=== PATIENT | female | born 1940 | race Caucasian/White ===

== ENCOUNTER 2018-06-22 21:30 | Inpatient (IN) | payer OTHER, MEDICARE ==
[~2018-06-22] VITALS: Ht 157.5 cm; Wt 53.6 kg
[2018-06-22 21:58] VITALS: BP 147/81
[2018-06-22 23:12] VITALS: BP 144/78
[2018-06-23] MEDS ORDERED: AMLO10TA6 PO (04:46)
[2018-06-23] MEDS ORDERED: CEVI30CA PO (04:46)
[2018-06-23] MEDS ORDERED: LINA5TAB4 PO (04:46)
[2018-06-23] MEDS ORDERED: METF500T9 PO (04:46)
[2018-06-23] MEDS ORDERED: LOSA100T7 PO (04:46)
[2018-06-23] MEDS ORDERED: CALC-30 PO (04:46)
[2018-06-23] MEDS ORDERED: PANT40TA5 PO (04:46)
[2018-06-23] MEDS ORDERED: GEMF600T4 PO (04:46)
[2018-06-23] MEDS ORDERED: HYDR200T5 PO (04:46)
[2018-06-23] MEDS ORDERED: ALBU18HF INH (04:46)
[2018-06-23] MEDS ORDERED: BECL10.62 INH (04:46)
[2018-06-23] MEDS ORDERED: OXYB10TA PO (04:46)
[2018-06-23] MEDS ORDERED: ATOR20TA58 PO (04:46)
[2018-06-23] MEDS ORDERED: METO50TA6 PO (04:46)
[2018-06-23] MEDS ORDERED: SILD20TA2 PO (04:46)
[2018-06-23] MEDS ORDERED: RANI150T2 PO (04:47)
[2018-06-23 05:39] VITALS: BP 147/65
[2018-06-23 06:00] LABS: BASO # 0.2 x10^3/uL (0.0-0.2); BASO % 3 % (0-3); EOS # 0.3 x10^3/uL (0.0-0.7); EOS % 5 % (0-3); HEMATOCRIT 34.8 % (36.0-47.0); HEMOGLOBIN 11.3 g/dL (12.0-15.5); LYMPH # 1.1 x10^3/uL (1.0-4.8); LYMPH % 19 % (24-48); MEAN CORPUSCULAR HEMOGLOBIN 30 pg (25-35); MEAN CORPUSCULAR HGB CONC 33 g/dL (31-37); MEAN CORPUSCULAR VOLUME 94 fL (79-100); MONO # 0.7 x10^3/uL (0.0-1.1); MONO % 11 % (0-9); NEUT # 3.6 x10^3uL (1.8-7.7); NEUT % 62 % (31-73); PLATELET COUNT 276 x10^3/uL (140-400); RED BLOOD COUNT 3.71 x10^6/uL (3.50-5.40); RED CELL DISTRIBUTION WIDTH 14.4 % (11.5-14.5); WHITE BLOOD COUNT 5.8 x10^3/uL (4.0-11.0)
[2018-06-23 06:24] LABS: ALBUMIN 2.1 g/dL (3.4-5.0); ALBUMIN/GLOBULIN RATIO 0.6 (1.0-1.7); CALCIUM 7.7 mg/dL (8.5-10.1); CREATININE 0.7 mg/dL (0.6-1.0); GFR 81.4; POTASSIUM 4.2 mmol/L (3.5-5.1); TOTAL BILIRUBIN 0.2 mg/dL (0.2-1.0); TOTAL PROTEIN 5.6 g/dL (6.4-8.2)
[2018-06-23] MEDS ORDERED: MAGNESIUM OXIDE 400 MG TABLET PO SCH (09:00)
[2018-06-23] MEDS ORDERED: DICL100G18 TP (09:28)
[2018-06-23] MEDS ORDERED: CHOL10003 PO (09:28)
[2018-06-23] MEDS ORDERED: MULT-658 PO (09:28)
[2018-06-23] MEDS ORDERED: MAGN71.5 PO (09:28)
[2018-06-23] MEDS ORDERED: HYDR12.58 PO (09:28)
[2018-06-23] MEDS ORDERED: POTA20TA82 PO (09:28)
[2018-06-23] MEDS ORDERED: CRAN200C2 PO (09:28)
[2018-06-23] MEDS ORDERED: LACT1TAB24 PO (09:28)
[2018-06-23 11:07] VITALS: BP 129/70
[2018-06-23] MEDS ORDERED: ALBUTEROL SULFATE 8GM INHALER. INH PRN (12:30)
[2018-06-23] MEDS ORDERED: MAGNESIUM SULFATE 2GM 50 ML IV ONE (13:00)
--- NOTE | 2018-06-23 13:04 | HP ---
ADMIT DATE: 06/23/2018 HISTORY OF PRESENT ILLNESS: The patient is a 78-year-old female patient, who apparently was sent by her primary care physician for abnormal labs and unintentional weight loss. She apparently lost about 30 pounds in weight. She was found to be hyponatremic, hypokalemic, and has had diarrhea and poor intake, ongoing for almost 2 months now. Her stated that she takes few bites of food, being gags. Her primary care physician was concerned about failure to thrive. She denied any focal pain. She apparently was evaluated in the Emergency Room and was found to have urinary tract infection, treated with IV antibiotic. She was also found to have hypomagnesemia, treated with magnesium sulfate and was transferred to our facility as she did not have a bed available for her. When I saw her this morning again her main complaint was diarrhea that has been going on for almost a month according to her and also dysuria and frequency. She has also dysphagia to solids and weight loss of 30 pounds that was unintentional. PAST MEDICAL HISTORY: Significant for bronchial asthma. She is known to have hypertension, hyperlipidemia, gastroesophageal reflux disease, type 2 diabetes, osteoarthritis, pulmonary hypertension, Sjogren's syndrome, squamous cell cancer of the skin, [id number] urinary tract infection, basal cell carcinoma as well as bronchial asthma. PAST SURGICAL HISTORY: Significant for cystoscopy with bladder biopsy, had hysterectomy, salivary gland surgery and colonoscopy. She also said that she has bilateral cataract extraction. FAMILY HISTORY: Unremarkable. She has 3 sisters and 1 brother still all life. Her father at age of 64 because of myocardial infarction. Mother at the age of 86 because of lung cancer as she was a heavy smoker. SOCIAL HISTORY: She is , has 3 sons and 2 daughters. She never smoked, does not drink alcohol and apparently was qepc-vh-[id number] mom. REVIEW OF SYSTEMS: The patient denied any blurring of vision. She did have bilateral cataract extraction, but denied any glaucoma or macular degeneration. Denied any earache, tinnitus or sensorineural deafness. Denied any nosebleeds, stuffy nose or postnasal drip. Denied any sore throat. Did complain of dysphagia to solid. Denied any nausea, vomiting, diarrhea or constipation. Denied any hematemesis, melena or hematochezia. She did complain of dysuria and frequency, but denied any hematuria. Denied any chest pain, shortness of breath, cough or phlegm. Denied any dizziness, lightheadedness, or vertigo. Denied any chills, rigors, or fever. ALLERGIES: She is allergic to LALO INHIBITORS, SULFA DRUGS, CIPROFLOXACIN, GLIMEPIRIDE, LEVOFLOXACIN, NITROFURANTOIN. MEDICATIONS: She is currently on following medications: She is currently on metformin 500 mg 2 tablets twice a day, Lipitor for atorvastatin 20 mg at bedtime, Norvasc/amlodipine 10 mg once a day, gemfibrozil 600 mg twice a day, Lactinex for lactobacillus acidophilus chewable tablet 1 tablet 3 times a day. She is on Voltaren/diclofenac sodium 1% topical gel apply 4 grams to affected areas of the lower extremities once a day. She is on Lopressor 50 mg takes half a tablet in the morning, Tradjenta for linagliptin 5 mg once a day, QVAR/beclomethasone dipropionate 80 mcg one activation orally one inhalation once a day. She is on hydrochlorothiazide 12.5 mg every other day, losartan potassium 100 mg once a day, Zantac 150 mg 1 tablet at bedtime, estradiol 0.1 mg per 1 gram vaginal cream 2 nights per week, Ventolin for albuterol 2 puffs every 4 hours as needed, potassium chloride 20 mEq once a day, sildenafil citrate 20 mg 3 times a day. She is on oxybutynin chloride once a day, cranberry capsules one capsule once a day, vitamin D 1000 international units once a day, hydroxychloroquine sulfate 1 tablet twice a day, Centrum Silver 1 tablet p.o. once a day, and Caltrate 600 mg plus vitamin D plus 600 mg of vitamin D once a day and Slow-Mag 2 tablets once a day. PHYSICAL EXAMINATION: GENERAL: When examining her, she looked pale, somewhat cachectic, but no jaundice, cyanosis. No lymphadenopathy, no thyromegaly. No jugular venous distension. No lower limb edema. VITAL SIGNS: Her heart rate was 103, blood pressure was 147/81, temperature was 98.1, respiratory rate 20, and oxygen saturation was 95% on room air. HEAD, EYES, EARS, NOSE AND THROAT: Showed normocephalic, atraumatic. NECK: Supple. HEART: Showed normal first and second heart sounds with no gallop, rub or murmur. CHEST: Clear to auscultation. No crepitation or rhonchi. ABDOMEN: Distended, soft, nontender. No guarding or rigidity. No organomegaly. All hernial orifice intact. Bowel sounds normal. NEUROLOGIC: She was awake, alert, responding appropriately. All her cranial nerves intact. EXTREMITIES: She moves extremities without difficulty. She apparently ambulates without assistance or assistive devices. LABORATORY DATA: At [facility] showed a white cell count of 6500, hemoglobin 11.7, hematocrit 37, MCV was 94 and platelet count of 322,000 with normal manual differential. Her serum sodium was 139, potassium 4.7, chloride 112, bicarbonate 17, anion gap of 10, calcium was 8.6, glucose 169. Total protein was 6.6, albumin 3.3. AST, ALT, alkaline phosphatase were normal. Total bilirubin was 0.2. Her BUN was 20, creatinine 0.9, estimated GFR was 73 mL per minute. Her urinalysis showed the urine was yellow. Urine was negative for glucose, bilirubin, ketones with a specific gravity is 1.025, pH was 6. There was small amount of protein. The urine was negative for urobilinogen. It was positive for nitrites and there was large amount of leukocyte esterase. Her serum lipase was normal at 109. She has severe hypomagnesemia with serum magnesium was 1.2, ionized calcium was 4.6, phosphorus 3.5 and urine microscopy showed the patient has 6-10 rbc's, more than 40 wbc's. There are large amount of bacteria. Her EKG showed that the heart rate was 78 with a QT interval of 364, corrected QT interval of 431. She did had CT scan of the abdomen and pelvis, which was done without contrast, which basically showed that the visualized lung bases are clear. There are multiple calcified gallstones, calcified granulomas are seen in the spleen. The kidneys appear small in size suggesting atrophy. There are small hypodense lesions in each kidney measuring up to 11 mm in the right side and 11 mm on the left. These are nonspecific, but suggestive of hyperdense cyst. The liver, gallbladder, spleen, pancreas, adrenal glands and kidneys are otherwise normal. Urinary bladder is normal in appearance. Diverticulosis coli is noted. There is prominent mural thickening involving a large segment of the colon including the ascending colon and the proximal half of the transverse colon. Findings are consistent with nonspecific colitis. There is no bowel obstruction. There is no evidence for acute appendicitis, mild atherosclerotic calcification are seen. No lymphadenopathy or ascites is seen. Degenerative changes are seen in the spine. The patient has nonspecific colitis involving the ascending colon, proximal transverse colon. Differential considerations include, but are not limited to infectious inflammatory ischemic or neoplastic etiologies. The renal ultrasound showed that the patient has small bilateral renal cyst. No evidence of solid renal mass or hydronephrosis. Both kidneys are measuring 9-10 cm in size. Parenchymal echotexture is normal bilaterally. Bladder is unremarkable. Her chest x-ray showed that the cardiac silhouette and pulmonary vasculature are within normal limits. There is no focal consolidation, pleural effusion or pneumothorax. The patient has degenerative changes seen in the spine. ASSESSMENT AND PLAN: The patient was transferred to our facility with urinary tract infection, hypomagnesemia and nonspecific colitis. Apparently, they attempted to send stool for culture and sensitivity as well as C. diff colitis, but having obtained a sample while she has at [facility]. My plan is obviously to continue all her current medication. We will continue with the IV ceftriaxone for her urinary tract infection, awaiting the results of culture and sensitivity. We will replenish her magnesium and send stool for C. diff and also for culture and sensitivity. HEAVENLY QUEZADA MD DR: LESIA/paulie JOB#: [id number] / [id number]
[2018-06-23] MEDS ORDERED: ALBUTEROL SULFATE 2.5 MG/3 ML NEBU. NEB PRN (13:30)
[2018-06-23] MEDS: SILDENAFIL CITRATE 20 MG TABLET. PO SCH ×2 (14:00→20:39)
[2018-06-23] MEDS: CEVIMELINE HCL 30 MG CAPSULE PO SCH ×2 (14:00→20:37)
[2018-06-23] MEDS: DICLOFENAC SODIUM 1% TOPICAL GEL 100GM TUBE. TP SCH ×3 (14:25→20:50)
[2018-06-23] MEDS: MAGNESIUM OXIDE 400 MG TABLET PO SCH ×2 (14:26→20:38)
[2018-06-23] MEDS: LACTOBACILLUS RHAMNOSUS GG 1 CAPSULE. PO SCH ×2 (14:26→20:37)
[2018-06-23 15:04] VITALS: BP 146/78
[2018-06-23] MEDS: GEMFIBROZIL 600 MG TABLET. PO SCH (17:52)
[2018-06-23] MEDS: metFORMIN XR 500 MG TAB.ER.24H PO SCH (17:52)
[2018-06-23] MEDS: cefTRIAXone IV Push 1 GM VIAL. IVP SCH (20:37)
[2018-06-23] MEDS: OXYBUTYNIN CHLORIDE 5 MG TABLET PO SCH (20:38)
[2018-06-23] MEDS: FAMOTIDINE 20 MG TABLET PO SCH (20:38)
[2018-06-23 20:40] VITALS: BP 154/77
[2018-06-23] MEDS: ENOXAPARIN 40 MG/0.4 ML SYRINGE. SQ SCH (20:40)
[2018-06-23] MEDS: BUDESONIDE 0.5 MG/2 ML NEBU NEB SCH (20:49)
[2018-06-23 23:04] VITALS: BP 139/60
[2018-06-24 05:51] VITALS: BP 147/77
[2018-06-24 06:20] LABS: RED BLOOD COUNT 3.67 x10^6/uL (3.50-5.40); RED CELL DISTRIBUTION WIDTH 14.6 % (11.5-14.5)
[2018-06-24 06:28] LABS: ALBUMIN 2.1 g/dL (3.4-5.0); ALBUMIN/GLOBULIN RATIO 0.6 (1.0-1.7); CALCIUM 7.7 mg/dL (8.5-10.1); CREATININE 0.7 mg/dL (0.6-1.0); GFR 81.4; POTASSIUM 4.2 mmol/L (3.5-5.1); TOTAL BILIRUBIN 0.2 mg/dL (0.2-1.0); TOTAL PROTEIN 5.6 g/dL (6.4-8.2)
[2018-06-24] MEDS: LINAGLIPTIN 5 MG TABLET PO SCH (08:57)
[2018-06-24] MEDS: MAGNESIUM OXIDE 400 MG TABLET PO SCH ×3 (08:57→21:14)
[2018-06-24] MEDS: GEMFIBROZIL 600 MG TABLET. PO SCH ×2 (08:57→17:13)
[2018-06-24] MEDS: POTASSIUM CHLORIDE 20 MEQ TABLET.ER. PO SCH (08:57)
[2018-06-24] MEDS: ATORVASTATIN CALCIUM 20 MG TABLET PO SCH (08:57)
[2018-06-24] MEDS: MULTIVITAMIN I-VITE TABLET. PO SCH (08:57)
[2018-06-24] MEDS: LACTOBACILLUS RHAMNOSUS GG 1 CAPSULE. PO SCH ×3 (08:58→21:15)
[2018-06-24] MEDS: CALCIUM CARB/VIT D3 500/200 TABLET PO SCH (08:58)
[2018-06-24] MEDS: hydroCHLOROthiazide 12.5 MG CAPSULE PO SCH (08:58)
[2018-06-24] MEDS: CHOLECALCIFEROL (VITAMIN D3) 1,000 UNIT TABLET PO SCH (08:58)
[2018-06-24] MEDS: amLODIPine BESYLATE 10 MG TABLET PO SCH (08:58)
[2018-06-24] MEDS: HYDROXYCHLOROQUINE 200 MG TABLET PO SCH (08:59)
[2018-06-24] MEDS: SILDENAFIL CITRATE 20 MG TABLET. PO SCH ×3 (08:59→21:14)
[2018-06-24] MEDS: DICLOFENAC SODIUM 1% TOPICAL GEL 100GM TUBE. TP SCH ×4 (09:00→21:13)
[2018-06-24] MEDS ORDERED: BECLOMETHASONE DIPROPIONATE INH SCH (09:00)
[2018-06-24] MEDS: MAGNESIUM CHLORIDE ER 64 MG TABLET.ER PO SCH (09:00)
[2018-06-24] MEDS: CEVIMELINE HCL 30 MG CAPSULE PO SCH ×3 (09:00→21:13)
[2018-06-24] MEDS ORDERED: NON FORMULARY ITEM (Cranberry Extract (Cranberry) 200 MG) PO SCH (09:00)
[2018-06-24] MEDS: metFORMIN XR 500 MG TAB.ER.24H PO SCH ×2 (09:01→17:13)
[2018-06-24] MEDS: METOPROLOL SUCC 24HR ER 25 MG TAB.ER.24H. PO SCH (09:07)
[2018-06-24 10:40] VITALS: BP 129/71
[2018-06-24] MEDS: BUDESONIDE 0.5 MG/2 ML NEBU NEB SCH ×2 (11:05→21:00)
[2018-06-24 14:39] VITALS: BP 123/70
[2018-06-24] MEDS: cefTRIAXone IV Push 1 GM VIAL. IVP SCH (17:14)
--- NOTE | 2018-06-24 17:35 | PN ---
DATE: 06/24/2018 SUBJECTIVE: The patient is a 78-year-old female patient who was transferred from [facility] Emergency Room where she was seen initially with a complaint of diarrhea that has been going on for almost a month now. She was also found to have urinary tract infection, hypomagnesemia and unintentional weight loss. Her imaging studies showed that she has colitis. Her lab work showed that she has marked hypomagnesemia and her CT scan of the abdomen showed that she has diffuse colitis involving the transverse colon and descending and sigmoid colon; however, no stool samples were obtained at [facility] and so far, we have not obtained one here, although she continued to have diarrhea. She said she has 3 loose bowel movements this morning. PHYSICAL EXAMINATION: GENERAL: On examining her, she was resting flat, comfortably in bed, in no apparent distress. Awake, alert, responding appropriately. She was pale, but no jaundice, cyanosis, or thyromegaly. No jugular venous distension. No limb edema. VITAL SIGNS: Her heart rate was 85, blood pressure was 147/77, temperature was 98.5, respiratory rate was 20, and oxygen saturation was 94% on 2 liters of oxygen. The rest of clinical exam is unremarkable. Her intake was 1141 and no output was recorded. LABORATORY DATA: This morning showed serum sodium 139, potassium 4.2, chloride was 108, bicarbonate 22, anion gap of 9, BUN 10, creatinine 0.7, estimated GFR was 81 mL per minute. Her glucose was 170 mg/dL. Calcium was 7.7. Total bilirubin, AST, ALT, alkaline phosphatase were normal. Total protein was 5.6, albumin 2.1. Her white cell count was 8000, hemoglobin 11, hematocrit 34, MCV 93, and platelet count of 266,000. ASSESSMENT AND PLAN: This is a 78-year-old female patient who was admitted with 1. Urinary tract infection for which now Rocephin. Her urine was sent for culture and sensitivity at [facility]. We will contact the lab to find out the identification and sensitivity. 2. Diffuse colitis with differential including infectious versus ischemic colitis. The patient continued to have loose bowel movement. We will attempt to get a stool sample to send it for C. diff toxins as well as for culture and sensitivity. Meanwhile, we will start her on vancomycin once we have the stool sample. She did have a swallowing evaluation done yesterday and the speech therapist said that she was fine with all consistencies, but she recommended upper GI endoscopy. She did have also hypomagnesemia for which she received 2 grams of magnesium sulfate and we will start her on magnesium oxide. I did contact the lab to check her magnesium this morning again. HEAVENLY QUEZADA MD DR: LESIA/paulie JOB#: [id number] / [id number]
[2018-06-24 20:10] VITALS: BP 139/81
[2018-06-24] MEDS: ENOXAPARIN 40 MG/0.4 ML SYRINGE. SQ SCH (21:13)
[2018-06-24] MEDS: ACETAMINOPHEN 325 MG TABLET PO PRN (21:13)
[2018-06-24] MEDS: OXYBUTYNIN CHLORIDE 5 MG TABLET PO SCH (21:14)
[2018-06-24] MEDS: LOSARTAN 50 MG TABLET. PO SCH (21:14)
[2018-06-24] MEDS: FAMOTIDINE 20 MG TABLET PO SCH (21:14)
[2018-06-24 22:54] VITALS: BP 128/72
[2018-06-25 06:25] VITALS: BP 130/75
[2018-06-25 07:18] LABS: CALCIUM 8.1 mg/dL (8.5-10.1); CREATININE 0.8 mg/dL (0.6-1.0); GFR 69.7; POTASSIUM 4.8 mmol/L (3.5-5.1)
[2018-06-25] MEDS: metFORMIN XR 500 MG TAB.ER.24H PO SCH ×2 (08:44→17:14)
[2018-06-25] MEDS: ACETAMINOPHEN 325 MG TABLET PO PRN ×2 (08:44→21:29)
[2018-06-25] MEDS: amLODIPine BESYLATE 10 MG TABLET PO SCH (08:44)
[2018-06-25] MEDS: MULTIVITAMIN I-VITE TABLET. PO SCH (08:44)
[2018-06-25] MEDS: POTASSIUM CHLORIDE 20 MEQ TABLET.ER. PO SCH (08:45)
[2018-06-25] MEDS: MAGNESIUM OXIDE 400 MG TABLET PO SCH ×3 (08:45→21:29)
[2018-06-25] MEDS: GEMFIBROZIL 600 MG TABLET. PO SCH ×2 (08:45→17:14)
[2018-06-25] MEDS: CALCIUM CARB/VIT D3 500/200 TABLET PO SCH (08:45)
[2018-06-25] MEDS: LACTOBACILLUS RHAMNOSUS GG 1 CAPSULE. PO SCH ×3 (08:45→21:29)
[2018-06-25] MEDS: CHOLECALCIFEROL (VITAMIN D3) 1,000 UNIT TABLET PO SCH (08:45)
[2018-06-25] MEDS: LINAGLIPTIN 5 MG TABLET PO SCH (08:45)
[2018-06-25] MEDS: MAGNESIUM CHLORIDE ER 64 MG TABLET.ER PO SCH (08:45)
[2018-06-25] MEDS: METOPROLOL SUCC 24HR ER 25 MG TAB.ER.24H. PO SCH (08:45)
[2018-06-25] MEDS: SILDENAFIL CITRATE 20 MG TABLET. PO SCH ×3 (08:46→21:29)
[2018-06-25] MEDS: CEVIMELINE HCL 30 MG CAPSULE PO SCH ×3 (08:46→21:28)
[2018-06-25] MEDS: ATORVASTATIN CALCIUM 20 MG TABLET PO SCH (08:47)
[2018-06-25] MEDS: DICLOFENAC SODIUM 1% TOPICAL GEL 100GM TUBE. TP SCH ×4 (08:47→21:36)
[2018-06-25] MEDS: HYDROXYCHLOROQUINE 200 MG TABLET PO SCH (08:47)
[2018-06-25] MEDS: BUDESONIDE 0.5 MG/2 ML NEBU NEB SCH ×2 (11:26→20:49)
[2018-06-25 14:30] VITALS: BP 115/70
--- NOTE | 2018-06-25 14:53 | PN ---
DATE: 06/25/2018 SUBJECTIVE: The patient is resting flat, comfortably, in no apparent distress. On questioning her, she continued to complain of pain in her shoulders. She stated that she has 4 episodes of diarrhea, although the [employer]OP [employer]GER said that they are formed stool. Denied any nausea or vomiting. OBJECTIVE: GENERAL: When I examined her, she was pale, somewhat cachectic, but no jaundice, cyanosis, or thyromegaly. No jugular venous distension. No lower limb edema. VITAL SIGNS: Her heart rate was 81, blood pressure 130/75, temperature was 97.9, respiratory rate 20, and oxygen saturation was 93% on room air. HEAD, EYES, EARS, NOSE AND THROAT: Normocephalic, atraumatic. NECK: Supple. HEART: Showed normal first and second heart sounds with no gallop, rub or murmur. CHEST: Clear to auscultation. No crepitation or rhonchi. ABDOMEN: Distended, soft, nontender. No guarding or rigidity. No organomegaly. Her hernial orifice intact. Bowel sounds normal. NEUROLOGIC: She was awake, alert, responding appropriately. All cranial nerves intact. She ambulates without assistance or assistive devices. Her intake was 700 and output was 150. LABORATORY DATA: As of this morning, her serum sodium was 137, potassium 4.8, chloride 105, bicarbonate 22, anion gap of 10, BUN 17, creatinine 0.8, estimated GFR was 70 mL per minute. Her glucose 122, calcium was 8.1, glucose was 108 and magnesium was 1.8. ASSESSMENT: 1. Urinary tract infection for which she is now on Rocephin. Her urine was sent for culture and sensitivity at [facility]. I did contact the labs and unfortunately, I could not get any results. 2. Diffuse colitis with differential including infectious versus ischemic. The patient apparently has 4 bowel movements; however, they are formed. 3. Dysphagia, however, the patient had swallowing evaluation done, which showed that the patient is fine with all consistencies and she recommended an upper GI endoscopy. 4. Hypomagnesemia for which she received 2 grams of magnesium sulfate and started magnesium oxide. Her magnesium was 1.8 mg/dL. PLAN: To continue with IV Rocephin. Continue with all her other medications and we will contact the [facility] microbiology lab tomorrow to find out the results of the urine culture and sensitivity. We did send stool for culture and sensitivity; however, we are unable to so far to send any stool for C. diff. HEAVENLY QUEZADA MD DR: LESIA/paulie JOB#: [id number] / [id number]
[2018-06-25] MEDS: cefTRIAXone IV Push 1 GM VIAL. IVP SCH (17:15)
[2018-06-25 18:59] VITALS: BP 117/68
[2018-06-25] MEDS: FAMOTIDINE 20 MG TABLET PO SCH (21:29)
[2018-06-25] MEDS: OXYBUTYNIN CHLORIDE 5 MG TABLET PO SCH (21:29)
[2018-06-25] MEDS: LOSARTAN 50 MG TABLET. PO SCH (21:30)
[2018-06-25] MEDS: ENOXAPARIN 40 MG/0.4 ML SYRINGE. SQ SCH (21:33)
[2018-06-26 01:00] VITALS: BP 131/66
[2018-06-26 06:43] LABS: BASO # 0.1 x10^3/uL (0.0-0.2); BASO % 1 % (0-3); EOS # 0.4 x10^3/uL (0.0-0.7); EOS % 4 % (0-3); HEMATOCRIT 35.7 % (36.0-47.0); HEMOGLOBIN 11.2 g/dL (12.0-15.5); LYMPH # 2.2 x10^3/uL (1.0-4.8); LYMPH % 26 % (24-48); MEAN CORPUSCULAR HEMOGLOBIN 30 pg (25-35); MEAN CORPUSCULAR HGB CONC 32 g/dL (31-37); MEAN CORPUSCULAR VOLUME 94 fL (79-100); MONO # 0.9 x10^3/uL (0.0-1.1); MONO % 11 % (0-9); NEUT # 4.7 x10^3uL (1.8-7.7); NEUT % 57 % (31-73); PLATELET COUNT 296 x10^3/uL (140-400); RED CELL DISTRIBUTION WIDTH 15.1 % (11.5-14.5); WHITE BLOOD COUNT 8.3 x10^3/uL (4.0-11.0)
[2018-06-26 06:57] LABS: ALBUMIN 2.1 g/dL (3.4-5.0); ALBUMIN/GLOBULIN RATIO 0.5 (1.0-1.7); CALCIUM 8.6 mg/dL (8.5-10.1); CREATININE 0.9 mg/dL (0.6-1.0); GFR 60.9; POTASSIUM 5.1 mmol/L (3.5-5.1); TOTAL BILIRUBIN 0.2 mg/dL (0.2-1.0); TOTAL PROTEIN 6.4 g/dL (6.4-8.2)
[2018-06-26] MEDS: CALCIUM CARB/VIT D3 500/200 TABLET PO SCH (08:38)
[2018-06-26] MEDS: LINAGLIPTIN 5 MG TABLET PO SCH (08:39)
[2018-06-26] MEDS: POTASSIUM CHLORIDE 20 MEQ TABLET.ER. PO SCH (08:39)
[2018-06-26] MEDS: amLODIPine BESYLATE 10 MG TABLET PO SCH (08:39)
[2018-06-26] MEDS: MAGNESIUM CHLORIDE ER 64 MG TABLET.ER PO SCH (08:39)
[2018-06-26] MEDS: ATORVASTATIN CALCIUM 20 MG TABLET PO SCH (08:39)
[2018-06-26] MEDS: GEMFIBROZIL 600 MG TABLET. PO SCH ×2 (08:39→18:18)
[2018-06-26] MEDS: metFORMIN XR 500 MG TAB.ER.24H PO SCH ×2 (08:39→18:18)
[2018-06-26] MEDS: CHOLECALCIFEROL (VITAMIN D3) 1,000 UNIT TABLET PO SCH (08:39)
[2018-06-26] MEDS: MAGNESIUM OXIDE 400 MG TABLET PO SCH ×3 (08:40→19:35)
[2018-06-26] MEDS: MULTIVITAMIN I-VITE TABLET. PO SCH (08:40)
[2018-06-26] MEDS: hydroCHLOROthiazide 12.5 MG CAPSULE PO SCH (08:40)
[2018-06-26] MEDS: CEVIMELINE HCL 30 MG CAPSULE PO SCH ×3 (08:40→19:36)
[2018-06-26] MEDS: METOPROLOL SUCC 24HR ER 25 MG TAB.ER.24H. PO SCH (08:40)
[2018-06-26] MEDS: SILDENAFIL CITRATE 20 MG TABLET. PO SCH ×3 (08:41→19:40)
[2018-06-26] MEDS: HYDROXYCHLOROQUINE 200 MG TABLET PO SCH (08:41)
[2018-06-26] MEDS: DICLOFENAC SODIUM 1% TOPICAL GEL 100GM TUBE. TP SCH ×4 (08:42→19:36)
[2018-06-26] MEDS: LACTOBACILLUS RHAMNOSUS GG 1 CAPSULE. PO SCH ×3 (08:47→19:35)
[2018-06-26] MEDS: BUDESONIDE 0.5 MG/2 ML NEBU NEB SCH ×2 (09:27→20:33)
[2018-06-26 11:42] VITALS: BP 117/72
[2018-06-26] MEDS: ACETAMINOPHEN 325 MG TABLET PO PRN (14:02)
--- NOTE | 2018-06-26 15:08 | PN ---
DATE: 06/26/2018 SUBJECTIVE: The patient is resting flat, comfortably in bed, in no apparent distress. She continued to complain of pain in her shoulders, although they are much improved compared to when she came in. She continued to have loose bowel movement. In fact, she has 3 episodes of diarrhea this morning. Denied any nausea or vomiting. Denied any abdominal pain. Stools were sent for culture and sensitivity as well as C. diff toxins, the results of which are still pending at the time of this dictation. PHYSICAL EXAMINATION: GENERAL: When I saw her this afternoon, she was resting slightly propped up in bed, in no apparent distress and pale, but no jaundice, cyanosis, or thyromegaly. No jugular venous distension. No limb edema. VITAL SIGNS: His heart rate was 83, blood pressure 117/72, temperature was 98.3, respiratory rate was 18 and oxygen saturation was 93%. HEAD, EYES, EARS, NOSE AND THROAT: Normocephalic, atraumatic. NECK: Supple. HEART: Showed normal first and second heart sounds with no gallop, rub or murmur. CHEST: Clear to auscultation. No crepitation or rhonchi. ABDOMEN: Slightly distended, soft, nontender. No guarding or rigidity. No organomegaly. Hernial orifice intact. Bowel sounds normal. NEUROLOGIC: She was awake, alert, responding appropriately. Cranial nerves intact. She moves extremities without difficulty. She ambulates without assistance or assistive devices. Her intake over the last 24 hours was 700, output 150. LABORATORY DATA: The lab work this morning showed a serum sodium 138, potassium 5.1, chloride 105, bicarbonate 21, anion gap of 12, BUN 19, creatinine 0.9, estimated GFR was 61 mL per minute. Her glucose was 120, calcium was 8.6. Total bilirubin, AST, ALT, alkaline phosphatase were normal. Total protein 6.4, albumin was 2.1. Her white cell count was 8300, hemoglobin 11, hematocrit 35, MCV 94 and platelet count 296,000 with normal manual differential. ASSESSMENT AND PLAN: 1. Urinary tract infection for which she is now on Rocephin. Her urine was sent for culture and sensitivity at [facility]. I did contact the lab and unfortunately I could not get any results yesterday, I will try again. 2. Diffuse colitis with differential including infectious versus ischemic colitis. The patient's stool was sent for culture and sensitivity and C. diff toxin, the result of which is still pending dysphagia; however, the patient did very well on her video swallowing evaluation, which showed that the patient is fine with all consistencies and the speech therapist recommended an upper GI endoscopy. 3. Hypomagnesemia for which she received 2 grams of magnesium sulfate and she is now on magnesium oxide. Her most recent magnesium was 1.8 mg/dL. PLAN: Continue with IV Rocephin. Continue with all her other medications. I will contact [facility] lab to see if there is any sensitivity available. We have also contacted [facility] to see if there are any results of stool culture and sensitivity and also C. diff toxins. If the cultures are negative, I will transfer her to [facility] to consult the auto parts professional team for upper and lower GI endoscopy and consequent to elucidate the reason for her unexplained weight loss and finding in her colon. HEAVENLY QUEZADA MD DR: LESIA/paulie JOB#: [id number] / [id number]
[2018-06-26 16:05] VITALS: BP 125/72
[2018-06-26] MEDS: cefTRIAXone IV Push 1 GM VIAL. IVP SCH (18:19)
[2018-06-26] MEDS: LOSARTAN 50 MG TABLET. PO SCH (19:35)
[2018-06-26] MEDS: FAMOTIDINE 20 MG TABLET PO SCH (19:35)
[2018-06-26] MEDS: OXYBUTYNIN CHLORIDE 5 MG TABLET PO SCH (19:36)
[2018-06-26] MEDS: ENOXAPARIN 40 MG/0.4 ML SYRINGE. SQ SCH (19:36)
[2018-06-26 19:39] VITALS: BP 119/77
[2018-06-26 22:57] VITALS: BP 111/61
[2018-06-27 05:17] VITALS: BP 134/69
[2018-06-27] MEDS: MAGNESIUM CHLORIDE ER 64 MG TABLET.ER PO SCH (08:28)
[2018-06-27] MEDS: metFORMIN XR 500 MG TAB.ER.24H PO SCH ×2 (08:28→17:10)
[2018-06-27] MEDS: MULTIVITAMIN I-VITE TABLET. PO SCH (08:28)
[2018-06-27] MEDS: SILDENAFIL CITRATE 20 MG TABLET. PO SCH ×3 (08:29→20:45)
[2018-06-27] MEDS: MAGNESIUM OXIDE 400 MG TABLET PO SCH ×3 (08:29→20:45)
[2018-06-27] MEDS: ATORVASTATIN CALCIUM 20 MG TABLET PO SCH (08:29)
[2018-06-27] MEDS: LACTOBACILLUS RHAMNOSUS GG 1 CAPSULE. PO SCH ×3 (08:29→20:45)
[2018-06-27] MEDS: amLODIPine BESYLATE 10 MG TABLET PO SCH (08:29)
[2018-06-27] MEDS: LINAGLIPTIN 5 MG TABLET PO SCH (08:30)
[2018-06-27] MEDS: GEMFIBROZIL 600 MG TABLET. PO SCH ×2 (08:30→17:10)
[2018-06-27] MEDS: POTASSIUM CHLORIDE 20 MEQ TABLET.ER. PO SCH (08:30)
[2018-06-27] MEDS: CALCIUM CARB/VIT D3 500/200 TABLET PO SCH (08:30)
[2018-06-27] MEDS: METOPROLOL SUCC 24HR ER 25 MG TAB.ER.24H. PO SCH (08:31)
[2018-06-27] MEDS: CHOLECALCIFEROL (VITAMIN D3) 1,000 UNIT TABLET PO SCH (08:31)
[2018-06-27] MEDS: CEVIMELINE HCL 30 MG CAPSULE PO SCH ×3 (08:32→20:41)
[2018-06-27] MEDS: HYDROXYCHLOROQUINE 200 MG TABLET PO SCH (08:32)
[2018-06-27] MEDS: DICLOFENAC SODIUM 1% TOPICAL GEL 100GM TUBE. TP SCH ×4 (08:33→21:03)
[2018-06-27] MEDS: BUDESONIDE 0.5 MG/2 ML NEBU NEB SCH ×2 (09:54→20:33)
--- NOTE | 2018-06-27 10:57 | PN ---
DATE: 06/27/2018 SUBJECTIVE: The patient is resting slightly propped up in bed, in no apparent distress. She continued to complain of diarrhea. In fact, she said that she has 3 bowel movements this morning. Stool was sent for C. diff toxins as well as culture and sensitivity. It was supposed to be done at [facility] and so we will call the [facility] again this afternoon to find out if they have any results for the C. diff toxins. OBJECTIVE: GENERAL: When I examined her this morning, she looked pale, somewhat cachectic, but no jaundice or cyanosis. No lymphadenopathy, no thyromegaly. No jugular venous distension. No limb edema. VITAL SIGNS: Her heart rate was 80, blood pressure 134/69, temperature was 98.3, respiratory rate was 20, and oxygen saturation was 96%. HEAD, EYES, EARS, NOSE, AND THROAT: Normocephalic, atraumatic. NECK: Supple. HEART: Showed normal first and second heart sounds with no gallop, rub, or murmur. CHEST: Clear to auscultation. No crepitation or rhonchi. ABDOMEN: Distended, soft, nontender. No guarding or rigidity. No organomegaly. All hernial orifices intact. Bowel sounds normal. NEUROLOGIC: She was awake, alert, responding appropriately. Cranial nerves intact. She moves extremities without difficulty. She ambulates without assistance or assistive devices. Her intake over the last 24 hours was 1880, no output was recorded. LABORATORY DATA: Her lab work this morning showed her white cell count was 8300, hemoglobin 11, hematocrit 35, MCV 94, and platelet count of 296,000. Her chemistry showed a serum sodium 138, potassium 5.1, chloride 105, bicarbonate 21, anion gap of 12, BUN 19, creatinine 0.9. Her urine culture showed growth of Klebsiella pneumoniae, sensitive to ceftriaxone. Her stool for C. diff toxins as well as stool for culture and sensitivity still pending at the time of this dictation. ASSESSMENT: 1. Urinary tract infection with growth of Klebsiella pneumoniae, sensitive to ceftriaxone. 2. Diffuse colitis with differential includes infectious versus ischemic colitis. The patient's stool was sent for culture and sensitivity as well as C. diff toxin, the result of which is still pending at the time of this dictation. 3. Dysphagia, however, the patient did very well on her video swallowing evaluation and showed the patient is fine with all consistencies, however, she did recommend an upper GI endoscopy. 4. Hypomagnesemia, for which she received 2 grams of magnesium sulfate and she is currently on oral magnesium. Her most recent serum magnesium was 1.8 mg/dL. PLAN: 1. To continue with IV Rocephin. 2. Continue with all other medication. Continue with DVT prophylaxis. I will try and contact again the [facility] to see if her stool for C. diff toxins is available. HEAVENLY QUEZADA MD DR: LESIA/paulie JOB#: [id number] / [id number]
[2018-06-27 11:32] VITALS: BP 143/74
[2018-06-27 15:13] VITALS: BP 120/70
[2018-06-27] MEDS: cefTRIAXone IV Push 1 GM VIAL. IVP SCH (17:56)
[2018-06-27 20:00] VITALS: BP 131/77
[2018-06-27] MEDS: ENOXAPARIN 40 MG/0.4 ML SYRINGE. SQ SCH (20:43)
[2018-06-27] MEDS: LOSARTAN 50 MG TABLET. PO SCH (20:44)
[2018-06-27] MEDS: FAMOTIDINE 20 MG TABLET PO SCH (20:45)
[2018-06-27] MEDS: OXYBUTYNIN CHLORIDE 5 MG TABLET PO SCH (20:46)
[2018-06-27] MEDS: VANCOMYCIN 125 MG/2.5 ML ORAL SOLUTION. PO SCH (22:54)
[2018-06-28 06:37] VITALS: BP 113/78
[2018-06-28 07:12] LABS: RED BLOOD COUNT 3.33 x10^6/uL (3.50-5.40); RED CELL DISTRIBUTION WIDTH 14.8 % (11.5-14.5); WHITE BLOOD COUNT 5.5 x10^3/uL (4.0-11.0)
[2018-06-28 07:20] LABS: CALCIUM 8.5 mg/dL (8.5-10.1); CREATININE 0.7 mg/dL (0.6-1.0); GFR 81.4; MAGNESIUM 1.5 mg/dL (1.8-2.4); POTASSIUM 5.5 mmol/L (3.5-5.1)
[2018-06-28 07:38] LABS: BILIRUBIN,URINE NEG (NEG); CLARITY,URINE CLEAR; COLOR,URINE STRAW; GLUCOSE,URINE NEG (NEG); NITRITE,URINE NEG (NEG); UROBILINOGEN,URINE 0.2 mg/dL (0.2 mg/dL)
[2018-06-28 07:39] LABS: BACTERIA,URINE 0 /HPF (0-FEW); SQUAMOUS EPITHELIAL CELL,UR FEW /LPF
[2018-06-28] MEDS: POTASSIUM CHLORIDE 20 MEQ TABLET.ER. PO SCH (08:00)
[2018-06-28] MEDS: SILDENAFIL CITRATE 20 MG TABLET. PO SCH ×3 (08:41→21:32)
[2018-06-28] MEDS: CHOLECALCIFEROL (VITAMIN D3) 1,000 UNIT TABLET PO SCH (08:42)
[2018-06-28] MEDS: MULTIVITAMIN I-VITE TABLET. PO SCH (08:42)
[2018-06-28] MEDS: PHENAZOPYRIDINE 100 MG TABLET. PO SCH ×3 (08:42→21:30)
[2018-06-28] MEDS: MAGNESIUM CHLORIDE ER 64 MG TABLET.ER PO SCH (08:42)
[2018-06-28] MEDS: metFORMIN XR 500 MG TAB.ER.24H PO SCH ×2 (08:42→14:53)
[2018-06-28] MEDS: HYDROXYCHLOROQUINE 200 MG TABLET PO SCH (08:43)
[2018-06-28] MEDS: LACTOBACILLUS RHAMNOSUS GG 1 CAPSULE. PO SCH ×3 (08:43→21:31)
[2018-06-28] MEDS: METOPROLOL SUCC 24HR ER 25 MG TAB.ER.24H. PO SCH (08:43)
[2018-06-28] MEDS: GEMFIBROZIL 600 MG TABLET. PO SCH ×3 (08:43→14:53)
[2018-06-28] MEDS: hydroCHLOROthiazide 12.5 MG CAPSULE PO SCH (08:43)
[2018-06-28] MEDS: LINAGLIPTIN 5 MG TABLET PO SCH (08:43)
[2018-06-28] MEDS: ATORVASTATIN CALCIUM 20 MG TABLET PO SCH (08:43)
[2018-06-28] MEDS: CALCIUM CARB/VIT D3 500/200 TABLET PO SCH (08:45)
[2018-06-28] MEDS: CEVIMELINE HCL 30 MG CAPSULE PO SCH ×3 (08:46→21:31)
[2018-06-28] MEDS: MAGNESIUM OXIDE 400 MG TABLET PO SCH ×3 (08:46→21:31)
[2018-06-28] MEDS: DICLOFENAC SODIUM 1% TOPICAL GEL 100GM TUBE. TP SCH ×4 (08:49→21:00)
[2018-06-28] MEDS: VANCOMYCIN 125 MG/2.5 ML ORAL SOLUTION. PO SCH ×4 (08:50→21:36)
[2018-06-28] MEDS: amLODIPine BESYLATE 10 MG TABLET PO SCH (08:50)
[2018-06-28] MEDS: BUDESONIDE 0.5 MG/2 ML NEBU NEB SCH ×2 (10:44→20:24)
--- NOTE | 2018-06-28 13:27 | PN ---
DATE: 06/28/2018 SUBJECTIVE: The patient is sitting comfortably in her chair, in no apparent distress. She continued to complain of having frequent episodes of diarrhea as well as frequency. Her urine culture has grown Klebsiella pneumoniae, sensitive to ceftriaxone and the patient was treated with a course of ceftriaxone for almost 5 days. Finally, her stool came back positive for C. diff toxins and we did start her on vancomycin 125 mg 4 times a day together with Lactobacillus acidophilus. OBJECTIVE: GENERAL: On examining her today, she looked well and was clearly in no apparent distress. She was pale, slightly cachectic, but no jaundice, cyanosis, lymphadenopathy or thyromegaly. No jugular venous distension. No limb edema. VITAL SIGNS: Her heart rate was 79, blood pressure 113/78, temperature was 98.2, respiratory rate was 20, and oxygen saturation was 96%. HEAD, EYES, EARS, NOSE AND THROAT: Showed normocephalic, atraumatic. NECK: Supple. HEART: Showed normal first and second sounds. No gallop, rub or murmur. CHEST: Clear to auscultation. No crepitation or rhonchi. ABDOMEN: Slightly distended, soft, nontender. NEUROLOGIC: She is awake, alert, responding appropriately. All cranial nerves intact. She moves extremities without difficulty. She ambulates without assistance or assistive devices. Her intake over the last 24 hours was 820, no output was recorded. LABORATORY DATA: As of this morning, her white cell count was 5500, hemoglobin 10, hematocrit 31, MCV 93, and platelet count 305,000. Her chemistry showed that her serum sodium was 139, potassium 5.5, chloride 108, bicarbonate 21, anion gap of 10, BUN 15, creatinine 0.7, estimated GFR was 81 mL per minute. Her glucose was 107, calcium was 8.5, magnesium was 1.5. ASSESSMENT: 1. Urinary tract infection with growth of Klebsiella pneumoniae, treated with a 5-day course of ceftriaxone. 2. Diffuse colitis with differential including infectious colitis versus ischemic colitis. Her stool finally came back positive for C. diff toxins and she is now on oral vancomycin. 3. Dysphagia; however, the patient did very well on her video swallowing evaluation which showed the patient is fine with all consistencies; however, she did recommend upper GI endoscopy, hypomagnesemia for which she received 2 grams of magnesium sulfate and she is currently on oral magnesium. PLAN: Discontinue IV Rocephin. Continue with oral vancomycin. Continue with DVT prophylaxis. I did send urine for UA. I will give her a dose of fluconazole for possible yeast infection. She continued to have dysuria, frequency and we will hopefully discharge her home tomorrow on oral vancomycin. HEAVENLY QUEZADA MD DR: LESIA/paulie JOB#: [id number] / [id number]
[2018-06-28 15:42] VITALS: BP 126/64
[2018-06-28 19:56] VITALS: BP 135/73
[2018-06-28] MEDS: OXYBUTYNIN CHLORIDE 5 MG TABLET PO SCH (21:31)
[2018-06-28] MEDS: FAMOTIDINE 20 MG TABLET PO SCH (21:31)
[2018-06-28] MEDS: ENOXAPARIN 40 MG/0.4 ML SYRINGE. SQ SCH (21:34)
[2018-06-29 06:44] VITALS: BP 147/67
[2018-06-29] MEDS ORDERED: BENZOCAINE/MENTHOL LOZNGE 18'S BOX. PO PRN (08:00)
[2018-06-29] MEDS ORDERED: FLUCONAZOLE 100 MG TABLET. PO SCH (09:00)
[2018-06-29] MEDS: LINAGLIPTIN 5 MG TABLET PO SCH (09:01)
[2018-06-29] MEDS: VANCOMYCIN 125 MG/2.5 ML ORAL SOLUTION. PO SCH (09:01)
[2018-06-29] MEDS: LACTOBACILLUS RHAMNOSUS GG 1 CAPSULE. PO SCH (09:01)
[2018-06-29] MEDS: GEMFIBROZIL 600 MG TABLET. PO SCH (09:01)
[2018-06-29] MEDS: ATORVASTATIN CALCIUM 20 MG TABLET PO SCH (09:01)
[2018-06-29] MEDS: MAGNESIUM OXIDE 400 MG TABLET PO SCH (09:01)
[2018-06-29] MEDS: amLODIPine BESYLATE 10 MG TABLET PO SCH (09:01)
[2018-06-29] MEDS: PHENAZOPYRIDINE 100 MG TABLET. PO SCH (09:02)
[2018-06-29] MEDS: CALCIUM CARB/VIT D3 500/200 TABLET PO SCH (09:02)
[2018-06-29] MEDS: METOPROLOL SUCC 24HR ER 25 MG TAB.ER.24H. PO SCH (09:02)
[2018-06-29] MEDS: metFORMIN XR 500 MG TAB.ER.24H PO SCH (09:02)
[2018-06-29] MEDS: MAGNESIUM CHLORIDE ER 64 MG TABLET.ER PO SCH (09:02)
[2018-06-29] MEDS: CHOLECALCIFEROL (VITAMIN D3) 1,000 UNIT TABLET PO SCH (09:02)
[2018-06-29] MEDS: MULTIVITAMIN I-VITE TABLET. PO SCH (09:02)
[2018-06-29] MEDS: HYDROXYCHLOROQUINE 200 MG TABLET PO SCH (09:03)
[2018-06-29] MEDS: ACETAMINOPHEN 325 MG TABLET PO PRN (09:03)
[2018-06-29] MEDS: CEVIMELINE HCL 30 MG CAPSULE PO SCH (09:03)
[2018-06-29 09:04] VITALS: BP 147/67
[2018-06-29] MEDS: SILDENAFIL CITRATE 20 MG TABLET. PO SCH (09:04)
[2018-06-29] MEDS: DICLOFENAC SODIUM 1% TOPICAL GEL 100GM TUBE. TP SCH (09:09)
[2018-06-29] MEDS: BUDESONIDE 0.5 MG/2 ML NEBU NEB SCH (09:13)
[2018-06-29 12:22] LABS: CALCIUM 8.7 mg/dL (8.5-10.1); CREATININE 0.8 mg/dL (0.6-1.0); GFR 69.7; POTASSIUM 4.6 mmol/L (3.5-5.1)
[2018-06-29] MEDS ORDERED: VANC125S PO (13:02)
--- NOTE | 2018-06-29 14:24 | DS ---
DATE OF DISCHARGE: HOSPITAL COURSE: The patient is a 78-year-old female patient who was admitted with a complaint of recurrent bouts of diarrhea and also dysphagia as well as weight loss. She also has hypomagnesemia, was found to have urinary tract infection that eventually and urine was sent for culture and sensitivity that showed growth of Klebsiella pneumoniae for which she was treated with ceftriaxone. We sent also stool for C. diff toxins as well as for culture and sensitivity and her stool for C. diff finally came back showing that she is positive for C. diff toxins and we started her on vancomycin. She did complete a 5-day course of IV ceftriaxone and a decision was made to discharge her home to complete the course of oral vancomycin and to follow with her primary care physician as she needs to have upper and lower GI endoscopy to investigate her unintentional weight loss. PHYSICAL EXAMINATION: GENERAL: On examining her today, she was resting slightly propped up in bed, in no apparent respiratory distress. No pallor, jaundice, cyanosis, or thyromegaly. No jugular venous distension. No lower limb edema. VITAL SIGNS: Her heart rate was 89, blood pressure 147/67, temperature was 98.3, respiratory rate 20, and oxygen saturation was 96% on room air. HEAD, EYES, EARS, NOSE AND THROAT: Showed normocephalic, atraumatic. NECK: Supple. HEART: Showed normal first and second heart sounds. No gallop, rub, or murmur. CHEST: Clear to auscultation. No crepitation or rhonchi. ABDOMEN: Distended, soft, nontender. NEUROLOGIC: She is awake, alert, responding appropriately. All cranial nerves are intact. She moves extremities without difficulty. She ambulates without assistance or assistive devices. LABORATORY DATA: Her lab work as of this morning showed a white cell count 5500, hemoglobin 10, hematocrit 31, MCV 93, and platelet count 306,000. Her chemistry showed a serum sodium 136, potassium 4.6, chloride 106, bicarbonate 19, anion gap of 11, BUN 13, creatinine 0.8, estimated GFR was 69 mL per minute, her glucose 106, and calcium was 8.7. DISCHARGE MEDICATIONS: She was discharged home to continue on vancomycin 125 mg per 2.5 mL syringe 4 times a day for 10 more days. Should continue on albuterol sulfate 1 puff every 4 hours as needed, amlodipine 10 mg once a day, atorvastatin calcium 20 mg at bedtime, beclomethasone dipropionate for QVAR 1 inhalation once a day, calcium carbonate with vitamin D one tablet once a day, cevimeline 30 mg capsule 1 tablet 3 times a day for her dry mouth, cholecalciferol (vitamin D3) 10,000 international units once a day, cranberry extract 200 mg once a day, diclofenac sodium for Voltaren gel 1 gram applied topically 4 times a day, gemfibrozil 600 mg twice a day, hydrochlorothiazide 12.5 mg once a day, hydroxychloroquine 200 mg daily. She is on lactobacillus acidophilus 1 capsule 3 times a day, linagliptin for Tradjenta 5 mg once a day, losartan potassium 100 mg once a day, magnesium chloride for Slow-Mag 7.5 mg once a day, once a day, metformin extended release 1000 mg twice a day with meals, metoprolol tartrate 25 mg daily, multivitamin with mineral 1 tablet once a day, oxybutynin chloride 10 mg at bedtime, and sildenafil citrate 20 mg 3 times a day. FINAL DISCHARGE DIAGNOSIS: Urinary tract infection with growth of Klebsiella pneumoniae, complete the course of treatment in the form of ceftriaxone. Clostridium difficile colitis, she was discharged home to continue on oral vancomycin for 10 days. Other medical problems include unintentional weight loss for which she requires upper and lower GI endoscopy for further investigation. She is also known to have type 2 diabetes for which she is on metformin and Tradjenta, hypertension, hyperlipidemia, gastroesophageal reflux disease, bronchial asthma, type 2 diabetes, pulmonary hypertension as well as Sjogren syndrome. HEAVENLY QUEZADA MD DR: LESIA/paulie JOB#: [id number] / [id number] AURORA Yu MD
== END 2018-06-29 13:45 | disposition home or self-care (01) | DRG 372 ==
LOC: 1 SOUTH 21:30
PROVIDERS: ADMIT Internal Medicine; ATTEND Internal Medicine
DX: A04.72 Enterocolitis due to Clostridium difficile, not specified as recurrent (principal); N39.0 Urinary tract infection, site not specified; E87.1 Hypo-osmolality and hyponatremia; R13.10 Dysphagia, unspecified; E11.9 Type 2 diabetes mellitus without complications; E78.5 Hyperlipidemia, unspecified; E83.42 Hypomagnesemia; E87.6 Hypokalemia; I10 Essential (primary) hypertension; I27.20 Pulmonary hypertension, unspecified; J45.909 Unspecified asthma, uncomplicated; K21.9 Gastro-esophageal reflux disease without esophagitis; B96.1 Klebsiella pneumoniae [K. pneumoniae] as the cause of diseases classified elsewhere; M35.00 Sjogren syndrome, unspecified; Z80.1 Family history of malignant neoplasm of trachea, bronchus and lung; Z82.49 Family history of ischemic heart disease and other diseases of the circulatory system; Z85.828 Personal history of other malignant neoplasm of skin; Z90.710 Acquired absence of both cervix and uterus; Z98.41 Cataract extraction status, right eye; Z98.42 Cataract extraction status, left eye; M19.90 Unspecified osteoarthritis, unspecified site
CPT/HCPCS: 36415; 80048; 80053; 81001; 82947; 83735; 83880; 85025; 85027; 87045; 87086; 87493; 94640; J0696; J1650; J3475; J7613; J7626; 92610; 97530; 99285-25

== ENCOUNTER 2020-04-05 11:24 | Emergency (ER) | payer MEDICARE ==
[~2020-04-05] VITALS: Ht 160 cm; Wt 52.0 kg
[~2020-04-05 11:24] MED LIST: ALBU2.5V8 INH; AMLO10TA8 PO; ATOR20TA58 PO; BECL10.62 INH; CALC-30 PO; CEVI30CA PO; CHOL10003 PO; CRAN200C2 PO; DICL100G18 TP; GEMF600T8 PO; HYDR12.58 PO; HYDR200T5 PO; LACT1TAB24 PO; LINA5TAB4 PO; LOSA100T14 PO; MAGN71.5 PO; METF-658 PO; METO50TA6 PO; MULT-658 PO; OXYB10TA26 PO; PANT40TA6 PO; POTA20TA4 PO; RANI150T2 PO; SILD20TA2 PO; VANC125S PO
[2020-04-05] MEDS ORDERED: IV NORMAL SALINE 1,000ML 1,000 ML IV SCH (12:15)
[2020-04-05] MEDS ORDERED: IOHEXOL 300 MG/ML 75 ML VIAL. IV ONE (12:30)
[2020-04-05] MEDS ORDERED: CONTRAST GIVEN. MC PRN (12:30)
--- NOTE | 2020-04-05 12:38 | EKG ---
[address] [address] Test Date: 2020-04-05 Test Time: 12:21:26 Pat Name: EUGENIE RAINES Department: Room: Gender: F Twist Tester: BLAYNE : 1940 Requested By: CAPRI GARCIA Order Number: [id number] Reading MD: Measurements Intervals [place] Rate: 117 P: 13 KS: 180 QRS: 79 QRSD: 78 T: -4 QT: 286 QTc: 403 Interpretive Statements SINUS TACHYCARDIA T ABNORMALITY IN INFERIOR LEADS ABNORMAL ECG RI6.02 No previous ECG available for comparison
--- NOTE | 2020-04-05 12:42 | PHYS DOC ---
Adult General Chief Complaint Chief Complaint: ABDOMINAL PAIN HPI HPI Patient is a 80-year-old who presents for abdominal pain. History is severely limited due to patient's lack of own medical knowledge. She admits this is an acute on chronic problem. She reports history of C. difficile infection with most recent treatment in October 2019. She reports generalized abdominal pain, she is unable to describe characteristics, frequency, provoking and/or alleviating factors. She denies any recent fever or COVID-19 contact. She lives at home with and typically performs all activities of daily living without issues, admits she has been more weak and sedentary recently. Again, denies any fever, fall, trauma, headache, chest pain, shortness of breath, urinary symptoms, admits diarrhea but cannot characterize type of diarrhea/consistency/frequency. She spoke with her primary care physician this morning who recommended she come seek evaluation at our ER today Of note, further history was elicited from nurse at primary care's office and patient's daughter. Patient was seen by PCP on Friday. Patient had laboratory work performed at that time and the antibiotics prescribed for presumed enterocolitis, patient was not able to pick these up and has not started them yet. Daughter reports patient is not at baseline, admits patient is fully functioning at home and can take care of self and spouse. Also admits patient has long history of gastrointestinal infections for past 3 years. It is unknown if she has seen a textile stylist in outpatient setting Review of Systems Review of Systems Fourteen body systems of review of systems have been reviewed. See HPI for pertinent positives and negative responses, other johnson all other systems are negative, non-pertinent or non-contributory Current Medications Current Medications Current Medications Medications (Trade) Dose Ordered Sig/Denisa Start Time Stop Time Status Last Admin Dose Admin Info (Do NOT chart on this entry -- for MONITORING) 1 each PRN DAILY PRN 04/05/20 12:30 04/07/20 12:29 Iohexol (Omnipaque 300 Mg/ml) 75 ml 1X ONCE 04/05/20 12:30 04/05/20 12:31 DC Sodium Chloride 1,000 ml @ 1,000 mls/hr Q1H 04/05/20 12:15 04/05/20 13:14 Allergies Allergies Allergies Coded Allergies Type Severity Reaction Last Updated Verified LALO Inhibitors Allergy Severe Anaphylaxis 06/22/18 Yes glimepiride Allergy Severe Anaphylaxis 06/22/18 Yes Sulfa (Sulfonamide Antibiotics) Allergy Intermediate Diarrhea 06/22/18 Yes ciprofloxacin Allergy Intermediate Diarhea 06/22/18 Yes levofloxacin Allergy Intermediate "Tight throat" 06/22/18 Yes nitrofurantoin Allergy Intermediate Diarrhea, weakness 06/22/18 Yes Physical Exam Physical Exam Constitutional: Weak, frail-appearing patient, no acute distress, non-toxic appearance. No signs of trauma HENT: Normocephalic, atraumatic, bilateral external ears normal, oropharynx moist, no oral exudates, nose normal. Eyes: PERRLA, EOMI, conjunctiva normal, no discharge. Neck: Normal range of motion, no tenderness, supple, no stridor. Cardiovascular: Heart rate regular, sinus rhythm, no murmurs rubs or gallops Lungs & Thorax: Bilateral breath sounds clear to auscultation Abdomen: Bowel sounds normal, soft, no tenderness, no masses, no pulsatile masses. Nonsurgical abdomen, no peritoneal signs Skin: Warm, dry, no erythema, no rash. Back: No tenderness, no CVA tenderness. Extremities: No tenderness, no cyanosis, no clubbing, ROM intact, no edema. Neurologic: Alert and oriented X 3, grossly normal motor & sensory function, no focal deficits noted. Psychologic: Affect normal, judgement normal, mood normal. EKG EKG EKG obtained and interpreted by myself at 1230 hrs. as narrow complex sinus tachycardia at 117 bpm, unremarkable intervals, no axis deviation, no acute ischemic findings, no STEMI Radiology/Procedures Radiology/Procedures PROCEDURE: PORTABLE CHEST 1V PORTABLE CHEST 1V 04/05/2020 12:15 PM INDICATION: Shortness of breath, pain COMPARISON: 07/25/2014 TECHNIQUE: Portable frontal view of the chest is provided. FINDINGS: The cardiomediastinal silhouette is within normal limits. Lungs are clear. Right hilar fullness may be associated with lymphadenopathy. There are no significant pleural effusions. There is no pulmonary vascular congestion. No pneumothorax. No suspicious osseous abnormality. IMPRESSION: There is no acute cardiopulmonary process. More conspicuous right hilar fullness compared to prior examination. Consideration may be given for lymphadenopathy. These nodes could be calcified suggesting underlying granulomatous exposure. However, further characterization with CT chest may be of benefit. Electronically signed by: Trinidad Rzio MD (04/05/2020 12:53 PM) [id number] PROCEDURE: CT HEAD WO CONTRAST CT HEAD WO CONTRAST Date: 04/05/2020 1:16 PM Clinical Indication: ams Comparison: None. Technique: 5 mm axial tomographic images were obtained of the head without contrast. These were viewed on brain and bone windows. One or more of the following dose reduction techniques were utilized: Automated exposure control (AEC), Adjustment of mA and/or kV according to patient size, Use of iterative reconstruction technique such as ASiR, CT scan done according to ALARA and image gently/image wisely Findings: Mild generalized cerebral and cerebellar volume loss. Mild nonspecific periventricular hypoattenuation, most commonly seen with chronic small vessel ischemic disease. Calcified atherosclerosis of the bilateral cavernous and paraclinoid internal carotid arteries and intracranial vertebral arteries. No intra- or extra-axial mass or fluid collection. No acute hemorrhage. The ventricles are normal in size, shape, and morphology. The roberts-white matter junction is normal. The subarachnoid cisterns are patent. The visualized paranasal sinuses are normal. The visualized portions of the orbits and globes are normal. The mastoid air cells are clear. The freight car cleaner delta system topogram shows no lytic lesion or fracture. Impression: No acute intracranial process. Mild cerebral volume loss. Mild chronic small vessel ischemic disease. Electronically signed by: Lei Abdalla MD (04/05/2020 1:47 PM) [facility] PROCEDURE: CT CHEST ABDOMEN PELVIS WO CT CHEST ABDOMEN PELVIS WO INDICATION: GENERALIZED ABDOMINAL PAIN COMPARISON: None. TECHNIQUE: Multiple contiguous axial images were obtained throughout the chest, abdomen, and pelvis without the use of IV contrast. Axial images were reformatted into coronal and sagittal planes. One or more of the following dose reduction techniques were utilized: Automated exposure control (AEC), Adjustment of mA and/or kV according to patient size, Use of iterative reconstruction technique such as ASiR, CT scan done according to ALARA and image gently/image wisely. FINDINGS: Motion artifact degrades majority. The thyroid is symmetric. There is no axillary, mediastinal, or hilar adenopathy, although evaluation of the kush is limited without IV contrast. Atherosclerosis of the thoracic aorta and branch vessels. Cardiomegaly. Coronary artery atherosclerotic disease. There is no pericardial effusion. Right upper lobe part solid nodule with 6 mm solid component and left lower lobe part solid nodule with 6 mm solid component. The central airways are patent. No pleural abnormality. Evaluation of solid abdominal viscera is limited without the use of IV contrast. However, the liver, spleen, and adrenal glands are unremarkable. Cholelithiasis. Ill-defined haziness in the peripancreatic fat. Left renal 11 mm hyperdense lesion measuring 55 Hounsfield units. There is no significant mesenteric or retroperitoneal adenopathy identified, though evaluation is limited without intravenous contrast. There is no evidence of free intraperitoneal fluid or pneumoperitoneum. Colonic diverticulosis Bladder is unremarkable. Uterus is present There is no significant pelvic ascites. No significant iliac or inguinal adenopathy is identified. No acute osseous abnormality. Degenerative changes of the spine IMPRESSION: 1. Ill-defined haziness in the peripancreatic fat, nonspecific but can be seen with hepatitis. Correlate with laboratory values. No fluid collection. 2. Right upper lobe and left lower lobe part solid nodules. These could represent focal areas of infection/inflammation including fungal or potentially aspiration. Underlying neoplasm not excluded. Recommend three-month follow-up chest CT to assess stability/resolution. 3. Indeterminate left renal 11 mm hyperdense lesion, possibly a cyst with proteinaceous debris. Renal ultrasound could further characterize cystic versus solid nature. 4. Cholelithiasis. Electronically signed by: Lei Abdalla MD (04/05/2020 2:06 PM) [facility] Course & Med Decision Making Course & Med Decision Making Patient seen and evaluated on immediate ER arrival Airway patent, breathing nonlabored, patient tachycardic but otherwise vital signs stable Limited history obtainable per patient, comprehensive physical exam obtained and subsequent diagnostic studies ordered X2 large-bore IVs established, 500 ml NS and 2 g IV ceftriaxone administered Limited history and diagnostic work-up reviewed, patient appears septic likely to UTI, also appears to be suffering from acute pancreatitis in setting of gallstones. She has a left renal mass and pulmonary nodules which she was informed about but not immediately concerning I discussed with patient and later informed daughter need of admission to [facility] as I feel she would benefit from higher acuity of care and likely need for gastroenterology consultation, they were amenable On-call hospitalist, Dr. Bravo, contacted and case reviewed in depth. He was agreeable to transfer and admission under his care Patient and daughter notified of this decision, patient stabilized enough to be transported via EMS to [facility] for continued medical intervention Dragon Disclaimer Dragon Disclaimer This electronic medical record was generated, in whole or in part, using a voice recognition dictation system. Departure Departure: Impression: Primary Impression: Sepsis Additional Impressions: UTI (urinary tract infection) Delirium due to another medical condition, acute, hypoactive Pancreatitis Left renal mass Pulmonary nodules Cholelithiasis Disposition: 05 TRANSFER OTHER ([facility]) Admitting Physician: Other (Dr Jamison ) Condition: STABLE Referrals: AURORA VALENTIN MD (PCP) Justification of Admission: Justification of Admission: Justification of Admission Dx: Yes Sepsis: Tachypnea (2/2 uti) Problem Qualifiers CAPRI GARCIA DO Apr 05, 2020 12:42
[2020-04-05 12:49] LABS: ALBUMIN 3.5 g/dL (3.4-5.0); CALCIUM 10.9 mg/dL (8.5-10.1); CREATININE 1.6 mg/dL (0.6-1.0); GFR 31.2; POTASSIUM 4.6 mmol/L (3.5-5.1); TOTAL BILIRUBIN 0.5 mg/dL (0.2-1.0); TOTAL PROTEIN 7.1 g/dL (6.4-8.2)
[2020-04-05 12:50] LABS: BASO # 0.1 x10^3/uL (0.0-0.2); BASO % 0 % (0-3); EOS % 0 % (0-3); HEMATOCRIT 36.9 % (36.0-47.0); HEMOGLOBIN 10.7 g/dL (12.0-15.5); LYMPH # 0.6 x10^3/uL (1.0-4.8); LYMPH % 5 % (24-48); MEAN CORPUSCULAR HEMOGLOBIN 34 pg (25-35); MEAN CORPUSCULAR HGB CONC 29 g/dL (31-37); MEAN CORPUSCULAR VOLUME 115 fL (79-100); MONO # 0.5 x10^3/uL (0.0-1.1); MONO % 4 % (0-9); NEUT # 11.4 x10^3uL (1.8-7.7); NEUT % 91 % (31-73); PLATELET COUNT 298 x10^3/uL (140-400); RED CELL DISTRIBUTION WIDTH 22.4 % (11.5-14.5); WHITE BLOOD COUNT 12.5 x10^3/uL (4.0-11.0)
--- NOTE | 2020-04-05 12:56 | RAD ---
PORTABLE CHEST 1V 04/05/2020 12:15 PM INDICATION: Shortness of breath, pain COMPARISON: 07/25/2014 TECHNIQUE: Portable frontal view of the chest is provided. FINDINGS: The cardiomediastinal silhouette is within normal limits. Lungs are clear. Right hilar fullness may be associated with lymphadenopathy. There are no significant pleural effusions. There is no pulmonary vascular congestion. No pneumothorax. No suspicious osseous abnormality. IMPRESSION: There is no acute cardiopulmonary process. More conspicuous right hilar fullness compared to prior examination. Consideration may be given for lymphadenopathy. These nodes could be calcified suggesting underlying granulomatous exposure. However, further characterization with CT chest may be of benefit. Electronically signed by: Trinidad Rizo MD (04/05/2020 12:53 PM) [id number]
[2020-04-05 13:20] LABS: CLARITY,URINE TURBID; COLOR,URINE AMBER
[2020-04-05 13:21] LABS: BILIRUBIN,URINE NEG (NEG); GLUCOSE,URINE NEG (NEG); NITRITE,URINE NEG (NEG); UROBILINOGEN,URINE 0.2 mg/dL (0.2 mg/dL)
[2020-04-05 13:31] LABS: BACTERIA,URINE MANY /HPF (0-FEW); RBC,URINE >40 /HPF (0-2); SQUAMOUS EPITHELIAL CELL,UR FEW /LPF; WBC,URINE >40 /HPF (0-4)
[2020-04-05 13:33] LABS: ANISOCYTOSIS MOD; PLT ESTIMATE ADEQUATE (ADEQUATE); POLYCHROMASIA PRESENT
[2020-04-05 13:34] LABS: OVALOCYTES OCC
--- NOTE | 2020-04-05 13:50 | RAD ---
CT HEAD WO CONTRAST Date: 04/05/2020 1:16 PM Clinical Indication: ams Comparison: None. Technique: 5 mm axial tomographic images were obtained of the head without contrast. These were viewed on brain and bone windows. One or more of the following dose reduction techniques were utilized: Automated exposure control (AEC), Adjustment of mA and/or kV according to patient size, Use of iterative reconstruction technique such as ASiR, CT scan done according to ALARA and image gently/image wisely Findings: Mild generalized cerebral and cerebellar volume loss. Mild nonspecific periventricular hypoattenuation, most commonly seen with chronic small vessel ischemic disease. Calcified atherosclerosis of the bilateral cavernous and paraclinoid internal carotid arteries and intracranial vertebral arteries. No intra- or extra-axial mass or fluid collection. No acute hemorrhage. The ventricles are normal in size, shape, and morphology. The roberts-white matter junction is normal. The subarachnoid cisterns are patent. The visualized paranasal sinuses are normal. The visualized portions of the orbits and globes are normal. The mastoid air cells are clear. The chief chemist topogram shows no lytic lesion or fracture. Impression: No acute intracranial process. Mild cerebral volume loss. Mild chronic small vessel ischemic disease. Electronically signed by: Lei Abdalla MD (04/05/2020 1:47 PM) [facility]
[2020-04-05] MEDS ORDERED: IV NORMAL SALINE 100ML 100 ML ONE (14:02)
--- NOTE | 2020-04-05 14:09 | RAD ---
CT CHEST ABDOMEN PELVIS WO INDICATION: GENERALIZED ABDOMINAL PAIN COMPARISON: None. TECHNIQUE: Multiple contiguous axial images were obtained throughout the chest, abdomen, and pelvis without the use of IV contrast. Axial images were reformatted into coronal and sagittal planes. One or more of the following dose reduction techniques were utilized: Automated exposure control (AEC), Adjustment of mA and/or kV according to patient size, Use of iterative reconstruction technique such as ASiR, CT scan done according to ALARA and image gently/image wisely. FINDINGS: Motion artifact degrades majority. The thyroid is symmetric. There is no axillary, mediastinal, or hilar adenopathy, although evaluation of the kush is limited without IV contrast. Atherosclerosis of the thoracic aorta and branch vessels. Cardiomegaly. Coronary artery atherosclerotic disease. There is no pericardial effusion. Right upper lobe part solid nodule with 6 mm solid component and left lower lobe part solid nodule with 6 mm solid component. The central airways are patent. No pleural abnormality. Evaluation of solid abdominal viscera is limited without the use of IV contrast. However, the liver, spleen, and adrenal glands are unremarkable. Cholelithiasis. Ill-defined haziness in the peripancreatic fat. Left renal 11 mm hyperdense lesion measuring 55 Hounsfield units. There is no significant mesenteric or retroperitoneal adenopathy identified, though evaluation is limited without intravenous contrast. There is no evidence of free intraperitoneal fluid or pneumoperitoneum. Colonic diverticulosis Bladder is unremarkable. Uterus is present There is no significant pelvic ascites. No significant iliac or inguinal adenopathy is identified. No acute osseous abnormality. Degenerative changes of the spine IMPRESSION: 1. Ill-defined haziness in the peripancreatic fat, nonspecific but can be seen with hepatitis. Correlate with laboratory values. No fluid collection. 2. Right upper lobe and left lower lobe part solid nodules. These could represent focal areas of infection/inflammation including fungal or potentially aspiration. Underlying neoplasm not excluded. Recommend three-month follow-up chest CT to assess stability/resolution. 3. Indeterminate left renal 11 mm hyperdense lesion, possibly a cyst with proteinaceous debris. Renal ultrasound could further characterize cystic versus solid nature. 4. Cholelithiasis. Electronically signed by: Lei Abdalla MD (04/05/2020 2:06 PM) [facility]
[2020-04-05 15:17] VITALS: BP 159/92
== END 2020-04-05 16:20 | disposition short-term general hospital (02) ==
LOC: ER 11:24
DX: A41.9 Sepsis, unspecified organism (principal); N39.0 Urinary tract infection, site not specified; R41.0 Disorientation, unspecified; K85.90 Acute pancreatitis without necrosis or infection, unspecified; N28.89 Other specified disorders of kidney and ureter; R91.8 Other nonspecific abnormal finding of lung field; K80.20 Calculus of gallbladder without cholecystitis without obstruction; Z88.8 Allergy status to other drugs, medicaments and biological substances; Z88.2 Allergy status to sulfonamides; Z88.1 Allergy status to other antibiotic agents
CPT/HCPCS: 36415; 70450; 71045; 71250; 74176; 80053; 81001; 82550; 83605; 83690; 83880; 84484; 85025; 87040; 87086; 93005; 96365; 99285; J0696; J7030; 87077; 87186